=== PATIENT | female | born 1955 | race Caucasian/White ===

== ENCOUNTER 2020-10-19 11:36 | Outpatient (CLI) | payer MEDICARE ==
[2020-10-19] MEDS ORDERED: MIDAZOLAM 1 MG/ML, 5ML ONE (12:34)
[2020-10-19] MEDS ORDERED: FENTANYL PF 100 MCG/2ML ONE (12:34)
== END 2020-10-19 23:59 | disposition home or self-care (01) ==
LOC: RAD 11:36
PROVIDERS: ATTEND Family Medicine
DX: M19.90 Unspecified osteoarthritis, unspecified site (principal); M50.323 Other cervical disc degeneration at C6-C7 level; M51.34 Other intervertebral disc degeneration, thoracic region; M25.78 Osteophyte, vertebrae; Z88.8 Allergy status to other drugs, medicaments and biological substances
CPT/HCPCS: 72141; 72146; 99156; 99157; J2250; J3010